=== PATIENT | male | born 1985 | race Two or more races ===

== ENCOUNTER 2016-12-25 16:51 | Emergency (ER) | payer BC ==
--- NOTE | 2016-12-25 16:59 | EDM.PDOC ---
ED HISTORY OF PRESENT ILLNESS - General Chief Complaint: Fever Stated Complaint: FEVER/COUGH/BODY ACHES Time Seen by Provider: 12/25/16 16:58 Source of Information: Reports: Patient History Limitations: Reports: No limitations - History of Present Illness INITIAL COMMENTS - FREE TEXT/NARRATIVE: 31-year-old male [place] descent presents to the ED with complaints of high fever and chills and bodyaches over the last 2-1/2 days. Associated very sore throat difficult to swallow. Some pain in his ears at times with swallowing. No cough or sputum production. Appetite has been decreased because of the sore throat. Denies any nausea vomiting or diarrhea. He reports she's been getting recurrent bouts of tonsillitis with 5 infections in the last 2 years. Dentures been as high as 102.6. Unable to work today due to current illness. Feels dizzy and weak. Symptom Onset Date: 12/23/16 Symptom Onset Time: 12:00 Timing/Duration: Reports: Hour(s):, Gradual onset Severity: moderate Location, General: Reports: other (Throat) Quality: Reports: Ache, Burning, Same as previous episode, Sharp, Stabbing Improves with: Reports: Medication Worsens with: Reports: Other (Trying to eat and swallow.) Context, General: Denies: Activity, Exercise, Lifting, Sick contact, Trauma, Other Associated Symptoms (General): Reports: fever/chills, headaches (202.6 with chills.), loss of appetite (Generalized myalgia.), malaise, weakness, other. 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: Reports: Acetaminophen, NSAIDS (Motrin) - Related Data Allergies/ADRs: Allergies Allergy/AdvReac Type Severity Reaction Status Date / Time No Known Allergies Allergy Verified 12/25/16 17:03 Home Meds: Home Meds Ciprofloxacin HCl [Cipro] 500 mg PO BID #28 tablet 12/25/16 [Rx] oxyCODONE HCl/Acetaminophen [Percocet 5-325 mg Tablet] 1 - 2 each PO Q4H PRN # 12 tablet 12/25/16 [Rx] Past Medical History - Past Health History Medical/Surgical History: Denies Medical/Surgical History Gastrointestinal History: Reports: GERD - Past Surgical History Other HEENT Surgeries/Procedures: HAS THIS SAME ISSUES FOR PAST 3 YEARS AND ALREADY THIS YEAR HAS HAD 5 EPISODES Social & Family History - Tobacco Use Smoking Status *Q: Current Every Day Smoker Years of Tobacco use: 14 Packs/Tins Daily: 0.5 - Recreational Drug Use Recreational Drug Use: No - Living Situation & Occupation Living situation: Reports: Occupation: employed ED ROS GENERAL - Review of Systems Review Of Systems: See Below Constitutional: Reports: fever, chills, malaise, weakness, fatigue, decreased appetite. Denies: weight loss HEENT: Reports: Ear pain (Occasionally with swallowing.), Throat pain (Severe feels like razor blades when he swallows.), Throat swelling. Denies: Glasses, Hearing loss, Nosebleed Respiratory: Reports: No Symptoms. Denies: Shortness of Breath, Wheezing, Pleuritic Chest Pain Cardiovascular: Reports: No symptoms Endocrine: Reports: no symptoms GI/Abdominal: Reports: No symptoms, Decreased appetite. Denies: Abdominal pain , Anorexia, Black stool, Bloody stool, Constipation, Diarrhea, Difficulty swallowing, Distension, Hematemesis : Reports: no symptoms Musculoskeletal: Reports: muscle pain Skin: Reports: no symptoms (Generalized myalgia particularly his lower back muscles and neck muscles) Neurological: Reports: No Symptoms Psychiatric: Reports: No symptoms Hematologic/Lymphatic: Reports: no symptoms Immunologic: Reports: no symptoms ED EXAM, GENERAL - Physical Exam Exam: See Below Exam Limited By: No limitations General Appearance: alert, moderate distress (He feels very warm to palpation. Temperature was almost 103 on examination) Eye Exam: bilateral eye: normal inspection Ears: other (He has a left serous otitis media. Right tympanic membrane normal) Nose: normal inspection Throat/Mouth: Normal lips, Other (Bilateral follicular tonsillitis worse on the left as compared to the right. Both tonsils are heart are hypertrophic and erythematous.). No: Normal inspection, Normal oropharynx Head: atraumatic, normocephalic Neck: normal inspection, supple, non-tender, full range of motion, lymphadenopathy (L) (Mild submandibularly), lymphadenopathy (R) (Mild submandibularly.) Respiratory/Chest: no respiratory distress, lungs clear, normal breath sounds, no accessory muscle use, chest non-tender Cardiovascular: normal peripheral pulses, regular rate, rhythm, no murmur, tachycardia (Resting heart rate of 1:15 to 120 per minute to 2 fever.) Peripheral Pulses: 2+: posterior tibial (L), posterior tibial (R), dorsalis pedis (L), dorsalis pedis (R) GI/Abdominal: normal bowel sounds, soft, non tender, no organomegaly, no distention Back Exam: normal inspection, full range of motion Extremities: normal inspection, normal range of motion, non-tender, no pedal edema, normal capillary refill Neurological: alert, oriented, CN II-XII intact, normal cognition, normal gait, normal reflexes, no motor/sensory deficits Psychiatric: normal affect, normal mood Skin Exam: Warm, Dry, Intact, Normal color, No rash Course - Vital Signs Last Recorded V/S: Last Vital Signs Temp 39.1 C H 12/25/16 16:57 Pulse 115 H 12/25/16 16:57 Resp 18 12/25/16 16:57 BP 145/87 H 12/25/16 16:57 Pulse Ox 98 12/25/16 16:57 - Orders/Labs/Meds Orders: Active Orders 24 hr Category Date Time Status CULTURE STREP A CONFIRMATION [] Stat Lab 12/25/16 17:20 Results STREP SCRN A RAPID W CULT CONF [] Stat Lab 12/25/16 17:20 Results Meds: Medications Discontinued Medications Generic Name Dose Route Start Last Admin Trade Name Jian PRN Reason Stop Dose Admin Ceftriaxone Sodium 1 gm 12/25/16 17:20 12/25/16 17:43 Rocephin IM 12/25/16 17:21 1 gm ONETIME ONE Administration Ibuprofen 600 mg 12/25/16 17:21 12/25/16 17:42 Motrin PO 12/25/16 17:22 600 mg ONETIME ONE Administration Lidocaine HCl 2 ml 12/25/16 17:21 12/25/16 17:44 Xylocaine-Mpf 1% INJECT 12/25/16 17:22 2 ml ONETIME ONE Administration Lidocaine HCl Confirm 12/25/16 17:26 12/25/16 17:46 Lidocaine 1% Administered 12/25/16 17:27 Not Given Dose 2 ml .ROUTE .STK-MED ONE Oxycodone/Acetaminophen 1 tab 12/25/16 17:22 12/25/16 17:42 Percocet 325-5 Mg PO 12/25/16 17:23 1 tab ONETIME ONE Administration - Radiology Interpretation Free Text/Narrative:: 31-year-old male [place] dissent presents to the ED with high fever generalized myalgia headache and very sore throat for the last 2-1/2 days. Patient did not go to work today due to current illness. He reports that he's been having recurrent bouts of tonsillitis over the last 2 years this would be his fifth infection. Examination indeed shows bilateral follicular tonsillitis left greater than right. Mild to moderate submandibular adenopathy as noted. He has toxic appearance with temperature almost 103. Triage nurse did a influenza screen and I ordered a rapid strep screen on his throat. He'll be given an intramuscular injection of Rocephin 1 g IV. Given Motrin 600 mg by mouth with one Percocet tablet 5 325 by mouth for pain and fever relief. - Re-Assessments/Exams Free Text/Narrative Re-Assessment/Exam: 12/25/16 18:28 influenza screen is negative. Rapid strep also returned as negative. Patient wishes to pursue tonsillectomy. He's asked me to make a referral to one of the ear nose and throat surgeons in [facility]. I spoke with Dr. Graves and did give the patient Dr. Graves's office number so that he can phone and make his own appointment. I will send patient's history and physical to Dr. Graves as a form of referral. Patient will be placed on Cipro 500 mg twice daily for the next 14 days to eradicate chronic tonsillitis. Motrin 600 mg every 6 hours necessary for pain and fever relief. Note given to excuse him from work place today and tomorrow. Tentatively he'll be able to return to work on December 27. 12/25/16 18:33 on review of the records he was seen today he was seen 05/29, he was seen 05/26/16, 03/02, and 01/25/16 through the ER and all times was diagnosed with tonsillitis. On 3 occasions he did grow out group A streptococcal infection. Therefore peers that he is suffering from recurrent chronic tonsillitis and I will make a referral to Dr. Graves for decision making to identify if he is a candidate for tonsillectomy. This is certainly what the patient would prefer. Departure - Departure Time of Disposition: 17:23 Disposition: Home, Self-Care 01 Condition: fair Clinical Impression: Tonsillitis with exudate Prescriptions: Ciprofloxacin HCl [Cipro] 500 mg PO BID #28 tablet oxyCODONE HCl/Acetaminophen [Percocet 5-325 mg Tablet] 1 - 2 each PO Q4H PRN # 12 tablet PRN Reason: pain relief. Instructions: Tonsillitis, [id number] Referrals: Karri Silverman PA-C [Primary Care Provider] - Forms: ED Department Discharge, Return to Work/School Form Additional Instructions: Evaluation in the emergency room today in regards to high fever and very sore throat. Examination reveals bilateral tonsillitis left worse than the right. By your history this is a recurrent problem for you and you wish to pursue getting her tonsils removed. Treatment today will be a initial injection of Rocephin 1 g intramuscularly. He'll need to start oral antibiotics tomorrow Cipro 500 mg twice daily for 14 days to clear up infection completely in the tonsills. May use Motrin 600 mg every 6 hours for fever and pain relief. Also Percocet tabs one tablet every 4 hours for pain relief as well. Expect marked improvement over the next 48 hours. I will have you call Dr. Graves`s office who is an ear, nose and throat surgeon in [facility] . His phone number is to arrange an appointment in the next couple of weeks to discuss having your tonsils removed. I will also send along your note from today to his office on a referral basis. - My Orders Last 24 Hours: My Active Orders 12/25/16 17:20 CULTURE STREP A CONFIRMATION [RM] Stat STREP SCRN A RAPID W CULT CONF [RM] Stat - Assessment/Plan Last 24 Hours: My Active Orders 12/25/16 17:20 CULTURE STREP A CONFIRMATION [RM] Stat STREP SCRN A RAPID W CULT CONF [RM] Stat
[2016-12-25 17:03] VITALS: BP 145/87
[2016-12-25] MEDS ORDERED: cefTRIAXone 1 GM Vial IM ONE (17:20)
[2016-12-25] MEDS ORDERED: Lidocaine 1% PF 2 ML SDV INJECT ONE (17:21)
[2016-12-25] MEDS ORDERED: Ibuprofen 600 MG Tab PO ONE (17:21)
[2016-12-25] MEDS ORDERED: Acetaminophen/oxyCODONE 325-5 MG Tab PO ONE (17:22)
[2016-12-25] MEDS ORDERED: Lidocaine 1% 2 ML SDV ONE (17:26)
== END 2016-12-25 18:20 | disposition home or self-care (01) ==
LOC: JD.ED 16:51
DX: J03.90 Acute tonsillitis, unspecified (principal); K21.9 Gastro-esophageal reflux disease without esophagitis; F17.210 Nicotine dependence, cigarettes, uncomplicated
CPT/HCPCS: 87081; 87430; 87804; 96372; 99283; A9270; J0696

== ENCOUNTER 2017-04-17 00:12 | Emergency (ER) | payer BC ==
[2017-04-17 00:23] VITALS: BP 132/75
--- NOTE | 2017-04-17 00:32 | EDM.PDOC ---
ED HPI GENERAL MEDICAL PROBLEM - General Chief Complaint: Fever Stated Complaint: HEADACHE FEVER Time Seen by Provider: 04/17/17 00:32 - History of Present Illness INITIAL COMMENTS - FREE TEXT/NARRATIVE: 31-year-old male presents to the emergency room with sore throat and fever. This has been getting worse over the last several days. The patient has had recurrent episodes of this in the past he was last treated with a shot of Rocephin and ciprofloxacin. The patient was going to schedule with ENT in [place] however canceled this appointment. The patient does not have any breathing difficulties shortness of breath or throat tightness with this current episode. Patient has a significant history of recurrent sore throats over the last several years. With reviewing his records he's had several strep positive screens. Throat Pain Score (Numeric/FACES): 8 - Related Data Allergies Allergy/AdvReac Type Severity Reaction Status Date / Time No Known Allergies Allergy Verified 04/17/17 00:19 Home Meds: Home Meds Clindamycin Hcl [IJD: Clindamycin HCl] 300 mg PO .EVERY 8 HOURS #30 cap [Rx] Ibuprofen [Advil] 200 mg PO Q8H 04/17/17 [History] Past Medical History - Past Health History Medical/Surgical History: Denies Medical/Surgical History Gastrointestinal History: Reports: GERD - Past Surgical History Other HEENT Surgeries/Procedures: HAS THIS SAME ISSUES FOR PAST 3 YEARS AND ALREADY THIS YEAR HAS HAD 5 EPISODES Social & Family History - Tobacco Use Smoking Status *Q: Current Every Day Smoker Years of Tobacco use: 14 Packs/Tins Daily: 0.5 - Recreational Drug Use Recreational Drug Use: No - Living Situation & Occupation Living situation: Reports: Occupation: Employed ED ROS GENERAL - Review of Systems Review Of Systems: See Below Constitutional: Reports: Fever. Denies: Chills HEENT: Reports: Throat Pain. Denies: Ear Pain, Rhinitis, Throat Swelling Respiratory: Reports: No Symptoms Cardiovascular: Reports: No Symptoms GI/Abdominal: Reports: No Symptoms ED EXAM, GENERAL - Physical Exam Exam: See Below Exam Limited By: No Limitations General Appearance: Alert, No Apparent Distress, Other (Vital signs stable pulses little quick he is afebrile) Eye Exam: Bilateral Eye: Normal Inspection Ears: Normal External Exam, Normal Canal, Hearing Grossly Normal, Normal TMs Nose: Normal Inspection, Normal Mucosa, No Blood Throat/Mouth: Normal Lips, Other (Posterior pharynx is erythematous tonsillar pillars have exudative patches on them mild to moderate erythema no significant swelling) Head: Atraumatic, Normocephalic Neck: Normal Inspection, Supple, Non-Tender, Full Range of Motion. No: Lymphadenopathy (L), Lymphadenopathy (R) Respiratory/Chest: No Respiratory Distress, Lungs Clear, Normal Breath Sounds Cardiovascular: Regular Rate, Rhythm, No Edema, No Murmur GI/Abdominal: Normal Bowel Sounds, Soft, Non-Tender Course - Vital Signs Last Recorded V/S: Last Vital Signs Temp 37.1 C 04/17/17 00:21 Pulse 105 H 04/17/17 00:21 Resp 18 04/17/17 00:21 BP 132/75 04/17/17 00:21 Pulse Ox 96 04/17/17 00:21 - Orders/Labs/Meds Orders: Active Orders 24 hr Category Date Time Status STREP SCRN A RAPID W CULT CONF [RM] Stat Lab 04/17/17 01:05 Results Meds: Medications Discontinued Medications Generic Name Dose Route Start Last Admin Trade Name Jian PRN Reason Stop Dose Admin Clindamycin HCl 300 mg 04/17/17 02:20 Cleocin PO 04/17/17 02:21 ONETIME ONE - Re-Assessments/Exams Free Text/Narrative Re-Assessment/Exam: 04/17/17 02:26 Rapid strep is positive he is having recurrent strep infections probably a carrier patient will be started on clindamycin 300 mg every 8 hours for 10 days it is essentially follow-up with his regular physician and be seen by ENT. Departure - Departure Time of Disposition: 02:27 Disposition: Home, Self-Care 01 Clinical Impression: History of streptococcal pharyngitis, Acute streptococcal pharyngitis - Discharge Information Prescriptions: Clindamycin Hcl [IJD: Clindamycin HCl] 300 mg PO .EVERY 8 HOURS #30 cap Forms: ED Department Discharge Additional Instructions: Return to the emergency room with any questions or problems or worsening symptoms. Follow-up in the Hospital clinic early this next week for recheck. [phone] Follow-up with the ear nose and throat doctor in [place]. You have been started on clindamycin, this is a very strong antibiotic take one every 8 hours until they're all gone. If you develop diarrhea while taking this follow-up in the clinic or return to the emergency room. - My Orders Last 24 Hours: My Active Orders 04/17/17 01:05 STREP SCRN A RAPID W CULT CONF [RM] Stat - Assessment/Plan Last 24 Hours: My Active Orders 04/17/17 01:05 STREP SCRN A RAPID W CULT CONF [RM] Stat
[2017-04-17] MEDS ORDERED: Clindamycin HCl 150 MG Cap PO ONE (02:20)
== END 2017-04-17 02:41 | disposition home or self-care (01) ==
LOC: JD.ED 00:12
DX: J02.0 Streptococcal pharyngitis (principal); F17.210 Nicotine dependence, cigarettes, uncomplicated; K21.9 Gastro-esophageal reflux disease without esophagitis; Z79.2 Long term (current) use of antibiotics
CPT/HCPCS: 87430; 99284; A9270; 99283

== ENCOUNTER 2017-05-11 08:03 | Emergency (ER) | payer BC ==
[2017-05-11 08:23] VITALS: BP 126/84
--- NOTE | 2017-05-11 08:31 | EDM.PDOC ---
ED HPI GENERAL MEDICAL PROBLEM - General Chief Complaint: Back Pain or Injury Stated Complaint: BACK PAIN Time Seen by Provider: 05/11/17 08:21 - History of Present Illness INITIAL COMMENTS - FREE TEXT/NARRATIVE: 31-year-old male presents emergency room with back pain. This pain has been on and off for really quite some time it sounds like however it kept him up most the night last night. He has pain only when he's lying down and there is some variability to this he does not have the pain when he is up and walking or sitting or working. Patient denies any loss of bowel or bladder control he has absolutely no leg pain and no other symptoms associated with this. Left Lower Back Pain Score (Numeric/FACES): 1 - Related Data Allergies Allergy/AdvReac Type Severity Reaction Status Date / Time No Known Allergies Allergy Verified 05/11/17 08:19 Home Meds: Home Meds Cyclobenzaprine [Flexeril] 10 mg PO DAILY #7 tablet 05/11/17 [Rx] Past Medical History - Past Health History Medical/Surgical History: Denies Medical/Surgical History Gastrointestinal History: Reports: GERD - Past Surgical History Other HEENT Surgeries/Procedures: HAS THIS SAME ISSUES FOR PAST 3 YEARS AND ALREADY THIS YEAR HAS HAD 5 EPISODES Social & Family History - Tobacco Use Smoking Status *Q: Current Every Day Smoker Years of Tobacco use: 14 Packs/Tins Daily: 0.5 - Recreational Drug Use Recreational Drug Use: No - Living Situation & Occupation Living situation: Reports: Occupation: Employed ED ROS GENERAL - Review of Systems Review Of Systems: See Below Constitutional: Reports: No Symptoms Respiratory: Reports: No Symptoms Cardiovascular: Reports: No Symptoms GI/Abdominal: Reports: No Symptoms Musculoskeletal: Reports: Back Pain Neurological: Reports: No Symptoms ED EXAM,LOWER BACK PAIN/INJURY - Physical Exam Exam: See Below Exam Limited By: No Limitations General Appearance: Alert, No Apparent Distress Head: Atraumatic, Normocephalic Respiratory/Chest: No Respiratory Distress, Lungs Clear, Normal Breath Sounds Cardiovascular: Regular Rate, Rhythm, No Edema, No Murmur Back Exam: Normal Inspection, Muscle Spasm (He has significant muscle tightness in the right lower lumbosacral area). No: CVA Tenderness (L), CVA Tenderness (R ), Vertebral Tenderness Extremities: Normal Inspection, No Pedal Edema Course - Vital Signs Last Recorded V/S: Last Vital Signs Temp 36.2 C 05/11/17 08:19 Pulse 60 05/11/17 08:19 Resp BP 126/84 05/11/17 08:19 Pulse Ox 99 05/11/17 08:19 - Orders/Labs/Meds Labs: Laboratory Tests 05/11/17 Range/Units 08:25 Urine Color Yellow (Yellow) Urine Appearance Clear (Clear) Urine pH 5.5 (5.0-8.0) Ur Specific [place] > or = 1.030 (1.005-1.030) Urine Protein Trace H (Negative) Urine Glucose (UA) Negative (Negative) Urine Ketones Negative (Negative) Urine Occult Blood Negative (Negative) Urine Nitrite Negative (Negative) Urine Bilirubin 1+ H (Negative) Urine Urobilinogen 0.2 (0.2-1.0) Ur Leukocyte Esterase Negative (Negative) Urine RBC 0-5 (0-5) /hpf Urine WBC 0-5 (0-5) /hpf Ur Epithelial Cells Not seen (0-5) /hpf Urine Bacteria Few (FEW) /hpf Urine Mucus Many H (FEW) /hpf Departure - Departure Time of Disposition: 09:02 Disposition: Home, Self-Care 01 Clinical Impression: Low back strain - Discharge Information Prescriptions: Cyclobenzaprine [Flexeril] 10 mg PO DAILY #7 tablet Referrals: Karri Silverman PA-C [Primary Care Provider] - Forms: ED Department Discharge Additional Instructions: Return to the emergency room with any questions problems or worsening symptoms. Follow up in the clinic on or Friday. Take ibuprofen, this is [id number], 200 mg tablets. Take 4, or 800 mg 3 times daily with meals as needed. You have been started on Flexeril, this is a muscle relaxant. Take it in the evenings to help you rest and to relax the muscles in your back
== END 2017-05-11 09:13 | disposition home or self-care (01) ==
LOC: JD.ED 08:03
DX: S39.012A Strain of muscle, fascia and tendon of lower back, initial encounter (principal); K21.9 Gastro-esophageal reflux disease without esophagitis; F17.210 Nicotine dependence, cigarettes, uncomplicated; X58.XXXA Exposure to other specified factors, initial encounter
CPT/HCPCS: 81001; 99283

== ENCOUNTER 2019-01-27 11:55 | Emergency (ER) | payer BC, OTHER ==
--- NOTE | 2019-01-27 12:36 | EDM.PDOC ---
ED HPI GENERAL MEDICAL PROBLEM - General Chief Complaint: Laceration Stated Complaint: NECK LAC Time Seen by Provider: 01/27/19 12:19 Source of Information: Reports: Patient History Limitations: Reports: No Limitations - History of Present Illness INITIAL COMMENTS - FREE TEXT/NARRATIVE: 33 yo M comes in today for laceration to his left anterior neck that happened while at work. 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 He is unsure if there is still a piece in his neck. He has a small laceration, about 0.1cm. He is breathing fine, is able to swallow, and states his pain is about a 3/10. No other complaints at this time. Tetanus is not UTD. He is primarily Bangladeshi speaking. - Related Data Allergies Allergy/AdvReac Type Severity Reaction Status Date / Time No Known Allergies Allergy Verified 01/27/19 12:05 Home Meds: Home Meds . [No Known Home Meds] 01/27/19 [History] Past Medical History - Past Health History Medical/Surgical History: Denies Medical/Surgical History Gastrointestinal History: Reports: GERD - Past Surgical History Other HEENT Surgeries/Procedures: HAS THIS SAME ISSUES FOR PAST 3 YEARS AND ALREADY THIS YEAR HAS HAD 5 EPISODES Social & Family History - Tobacco Use Smoking Status *Q: Current Every Day Smoker Years of Tobacco use: 10 Packs/Tins Daily: 0.5 - Caffeine Use Caffeine Use: Reports: Coffee - Recreational Drug Use Recreational Drug Use: No - Living Situation & Occupation Living situation: Reports: Occupation: Employed ED ROS GENERAL - Review of Systems Review Of Systems: ROS reveals no pertinent complaints other than HPI. ED EXAM, SKIN/RASH Exam: See Below Exam Limited By: No Limitations General Appearance: Alert, WD/WN, No Apparent Distress Eye Exam: Bilateral Eye: EOMI, Normal Inspection, PERRL Ears: Normal External Exam, Hearing Grossly Normal Nose: Normal Inspection, Normal Mucosa, No Blood Throat/Mouth: Normal Inspection, Normal Lips, Normal Teeth, Normal Gums, Normal Oropharynx, Normal Voice, No Airway Compromise Head: Atraumatic, Normocephalic Neck: Supple, Non-Tender, Full Range of Motion, Other (0.1cm laceration left anterior neck, actively bleeding) Respiratory/Chest: No Respiratory Distress, Lungs Clear, Normal Breath Sounds, No Accessory Muscle Use, Chest Non-Tender Cardiovascular: Normal Peripheral Pulses, Regular Rate, Rhythm, No Edema, No Gallop, No JVD, No Murmur, No Rub Neurological: Alert, Oriented, CN II-XII Intact, Normal Cognition, Normal Gait, Normal Reflexes, No Motor/Sensory Deficits Psychiatric: Normal Affect, Normal Mood Skin: Warm, Dry, Normal Color, Wound/Incision (0.1cm laceration to left anterior neck, actively bleeding) ED SKIN PROCEDURES - Laceration/Wound Repair Left Medial Neck Lac/Wound length In cm: 0.1 Appearance: Superficial Distal NVT: Neuro & Vascular Intact, No Tendon Injury Anesthetic Type: Local Local Anesthesia - Lidocaine (Xylocaine): 1% with EPI Skin Prep: Chlorhexidine (Hibiciens) Exploration/Debridement/Repair: Wound Explored, No Foreign Material Found Sterile Dressing Applied: Provider Tetanus Status Addressed: Yes Complications: No Progress/Comments: Unable to find metal via wound exploration or ultrasound. General Surgeon Dr. Victor came to examine, does not recommend surgery at this time. Course - Vital Signs Last Recorded V/S: Last Vital Signs Temp 97.7 F 01/27/19 12:02 Pulse 72 01/27/19 12:02 Resp 16 01/27/19 12:02 BP 122/79 01/27/19 12:02 Pulse Ox 94 L 01/27/19 12:02 - Orders/Labs/Meds Orders: Active Orders 24 hr Category Date Time Status Vaccines to be Administered [RC] PER UNIT ROUTINE Care 01/27/19 12:57 Active Meds: Medications Discontinued Medications Generic Name Dose Route Start Last Admin Trade Name Freq PRN Reason Stop Dose Admin Diphtheria/Tetanus/Acell Pertussis 0.5 ml 01/27/19 12:57 01/27/19 13:03 Adacel IM 01/27/19 12:58 0.5 ml .ONCE ONE Administration Lidocaine/Epinephrine 20 ml 01/27/19 12:57 01/27/19 13:05 Xylocaine 1% With Epinephrine 1:100,000 INJECT 01/27/19 12:58 20 ml ONETIME ONE Administration - Re-Assessments/Exams Free Text/Narrative Re-Assessment/Exam: 01/27/19 12:31 Ordered an Xray to r/o foreign body (metal) still in neck 01/27/19 12:47 Xray is back. There does appear to be metal in the neck. Will go ahead and do wound exploration to remove. 01/27/19 13:41 Wound was explored, unable to see or feel the foreign body on exam. Did try to use u/s guidance, but unable to use with sterile glove to maintain sterile field. Dr. Clayton came to inspect as well and agrees it is too difficult to find. Will likely need to send to the OR. Dr. Victor our general surgeon has been consulted. He will come see the patient. 01/27/19 15:04 Dr. Victor did come to assess the patient. U/S guidance was used to find the metal object, it is very small and superficial. Dr. Victor told the patient via overhead irrigator that surgery is not necessary at this time as the body will likely push the object out and it may not be worth the risk unless he is having active symptoms. Patient states he understands and is OK with going home at this time. Will send home with bandage and have advised to return to the ED if new or worsening symptoms that my warrant surgery at that time. Departure - Departure Time of Disposition: 15:08 Disposition: Home, Self-Care 01 Condition: Good Clinical Impression: Foreign body of neck, superficial Qualifiers: Encounter type: initial encounter Qualified Code(s): S10.95XA - Superficial foreign body of unspecified part of neck, initial encounter - Discharge Information *PRESCRIPTION DRUG MONITORING PROGRAM REVIEWED*: Not Applicable *COPY OF PRESCRIPTION DRUG MONITORING REPORT IN PATIENT ALECIA: Not Applicable Instructions: Puncture Wound, [id number] Referrals: PCP,None [Primary Care Provider] - Forms: ED Department Discharge Additional Instructions: You were seen in the ED today for metal in your neck. We explored the wound and were unable to find the object. Xray did show that there is metal in your neck. Our general surgeon also came to see you and did not recommend surgery at this time if you are not experiencing much pain or discomfort, as the object will likely come out on its own. The risks of surgery were explained to you- new cut , infection, not being able to find the metal- and you have decided to not have the surgery. Keep bandage on the wound and keep it clean for a few days until healed. Your tetanus shot was also updated today. Please update every 10 years. Please return to the ED if new or worsening symptoms. Hoy te vieron en el servicio de urgencias para el metal en tu tomy. Exploramos la herida y no pudimos encontrar el objeto. La radiografa mostr que hay metal en tu tomy. Nuestro cirujano general tambin vino a verlo y no recomend la ciruga en cale momento si no experimenta mucho dolor o molestia, ya que el objeto probablemente saldr por s solo. Se le explicaron los riesgos de la ciruga (nuevo charissa, infeccin, no poder encontrar el metal) y usted decidi no someterse a la ciruga. Mantenga la venda en la herida y mantngala limpia anselmo unos lopez hasta que sane. [place] vacuna contra el ttanos tambin se actualiz hoy. Por favor, actualice cada 10 aos. Por favor regrese al servicio de urgencias si los sntomas son nuevos o empeoran. - My Orders Last 24 Hours: My Active Orders 01/27/19 12:57 Vaccines to be Administered [RC] PER UNIT ROUTINE - Assessment/Plan Last 24 Hours: My Active Orders 01/27/19 12:57 Vaccines to be Administered [RC] PER UNIT ROUTINE
[2019-01-27] MEDS ORDERED: Diphtheria,Pertussis(Acell),Tetanus Vaccine 0.5 ML Syringe IM ONE (12:57)
[2019-01-27] MEDS ORDERED: Lidocaine 1% with EPINEPHrine 1:100,000 20 ML MDV INJECT ONE (12:57)
--- NOTE | 2019-01-27 12:58 | CR ---
Soft tissue neck: AP and lateral views of the neck were obtained. Linear opaque foreign body is seen within the superficial soft tissues of the anterior mid neck. This is located slightly to the left of midline. This abnormality measures approximately 1.1 x 0.13 x 0.40 cm. No additional foreign body is identified. Visualized osseous structures are within normal limits. Prevertebral soft tissues are normal. Impression: 1. Opaque foreign body as described above. Diagnostic code #3
[2019-01-27 16:05] VITALS: BP 126/83
--- NOTE | 2019-01-27 16:10 | PCM.CONS ---
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 ER staff attempted to identify the foreign body, but was unable to remove through local wound exploration. I was consulted to assist. The patient denies any pain at the site. There was bleeding at the site, per ER staff, but has since resolved. - Related Data Allergies/Adverse Reactions: Allergies Allergy/AdvReac Type Severity Reaction Status Date / Time No Known Allergies Allergy Verified 01/27/19 12:05 Home Medications: Home Meds . [No Known Home Meds] 01/27/19 [History] Past Medical History - Past Health History Medical/Surgical History: Denies Medical/Surgical History Gastrointestinal History: Reports: GERD - Past Surgical History Head Surgeries/Procedures: Reports: None Other HEENT Surgeries/Procedures: HAS THIS SAME ISSUES FOR PAST 3 YEARS AND ALREADY THIS YEAR HAS HAD 5 EPISODES Social & Family History - Tobacco Use Smoking Status *Q: Current Every Day Smoker Years of Tobacco use: 10 Packs/Tins Daily: 0.5 - Caffeine Use Caffeine Use: Reports: Coffee - Recreational Drug Use Recreational Drug Use: No - Living Situation & Occupation Living situation: Reports: Occupation: Employed H&P Review of Systems - Review of Systems: Review Of Systems: ROS reveals no pertinent complaints other than HPI. Exam - Exam Exam: See Below - Vital Signs Vital Signs: Last Vital Signs Temp 36.5 C 01/27/19 12:02 Pulse 72 01/27/19 12:02 Resp 16 01/27/19 12:02 BP 122/79 01/27/19 12:02 Pulse Ox 94 L 01/27/19 12:02 Weight: 81.647 kg - Exam General: Alert, Oriented, Cooperative, Other (no hoarse voice) Neck: Supple, Trachea Midline, Other (Just to the LEFT of midline at the mid- neck (zone 2), there is a small skin wound measuring <1 cm, without active bleeding. Nontender. No palpable foreign bodies.) - Patient Data Imaging Impressions Last 24 hrs: Soft tissue neck: AP and lateral views of the neck were obtained. Linear opaque foreign body is seen within the superficial soft tissues of the anterior mid neck. This is located slightly to the left of midline. This abnormality measures approximately 1.1 x 0.13 x 0.40 cm. No additional foreign body is identified. Visualized osseous structures are within normal limits. Prevertebral soft tissues are normal. Impression: 1. Opaque foreign body as described above. Diagnostic code #3 Consult PN Assessment/Plan Procedures: Procedures AG DETECT NOS IA MULT (05/29/16) ASSAY OF LIPASE (01/23/16) BLOOD CULTURE FOR BACTERIA (03/02/16) C-REACTIVE PROTEIN (02/14/16) CHEST X-RAY 2VW FRONTAL&LATL (03/02/16) CHYLMD TRACH DNA AMP PROBE (05/29/16) COMPLETE CBC W/AUTO DIFF WBC (05/29/16) COMPREHEN METABOLIC PANEL (03/02/16) CT ABD & PELVIS W/O CONTRAST (01/23/16) CULTURE SCREEN ONLY (12/25/16) EMERGENCY DEPT VISIT (05/11/17) EMERGENCY DEPT VISIT (04/17/17) EMERGENCY DEPT VISIT (12/25/16) HELICOBACTER PYLORI ANTIBODY (02/14/16) HEP B CORE ANTIBODY IGM (05/29/16) HEPATITIS A IGM ANTIBODY (05/29/16) HEPATITIS B SURFACE AG IA (05/29/16) HEPATITIS C AB TEST (05/29/16) HERPES SIMPLEX JOSIE ANTBDY (05/29/16) HERPES SIMPLEX TYPE 1 TEST (05/29/16) HERPES SIMPLEX TYPE 2 TEST (05/29/16) HETEROPHILE ANTIBODY SCREEN (03/02/16) HYDRATE IV INFUSION ADD-ON (03/02/16) INFLUENZA ASSAY W/OPTIC (12/25/16) N.GONORRHOEAE DNA AMP PROB (05/29/16) ROUTINE VENIPUNCTURE (03/02/16) STREP A AG IA (04/17/17) SYPHILIS TEST NON-TREP QUAL (05/29/16) THER/PROPH/DIAG INJ IV PUSH (03/02/16) THER/PROPH/DIAG INJ SC/IM (12/25/16) THER/PROPH/DIAG IV INF INIT (01/23/16) TX/PRO/DX INJ NEW DRUG ADDON (01/23/16) URINALYSIS AUTO W/O SCOPE (02/14/16) URINALYSIS AUTO W/SCOPE (05/11/17) (1) Foreign body of neck, superficial SNOMED Code(s): 907398899, [id number] Code(s): S10.95XA - SUPERFICIAL FOREIGN BODY OF UNSP PART OF NECK, INIT ENCNTR Current Visit: Yes Qualifiers: Encounter type: initial encounter Qualified Code(s): S10.95XA - Superficial foreign body of unspecified part of neck, initial encounter Problem List Initiated/Reviewed/Updated: Yes Plan: 33 male, [place]an-speaking, otherwise healthy, presents with a metallic foreign body in the subcutaneous tissue of the anterior neck. Foreign body is not palpable on clinical exam. X-ray images and radiology report reviewed. - Bedside U/S performed, which showed a hyperechoic object measuring about 1 cm in the subcutaneous tissue of the anterior neck, superficial to the fascia/ platysma. It appears to be located just inferior to the small wound (which would require a separate incision if operative exploration were to be pursued). - Extension discussion with patient (with assistance of tele-interpretation) regarding the indications, risks, and benefits of operative exploration to remove the foreign body. Since the object is metallic, and as long as there are no associated pain/symptoms, no further exploration is needed. Operative exploration has risks of bleeding, infection, scar, inability to identify and remove the foreign body (especially given its small size), and need for additional procedures. - Patient may return if he has any changes in symptoms. - Tetanus shot given in ED. Filiberto Pierre M.D. ([facility]), F.A.C.S. General Surgery
== END 2019-01-27 15:30 | disposition home or self-care (01) ==
LOC: JD.ED 11:55
DX: S10.95XA Superficial foreign body of unspecified part of neck, initial encounter (principal); F17.210 Nicotine dependence, cigarettes, uncomplicated; Y99.0 Civilian activity done for income or pay; W45.8XXA Other foreign body or object entering through skin, initial encounter; Z23 Encounter for immunization
CPT/HCPCS: 70360; 70360-26; 90471; 90700; 99283; 99283-25

== ENCOUNTER 2019-01-29 10:03 | Emergency (ER) | payer OTHER ==
[2019-01-29 10:35] VITALS: BP 135/83
[2019-01-29] MEDS ORDERED: Lidocaine 1% with EPINEPHrine 1:100,000 20 ML MDV INJECT ONE (10:53)
--- NOTE | 2019-01-29 12:21 | EDM.PDOC ---
ED HPI GENERAL MEDICAL PROBLEM - General Chief Complaint: Neck Problem Stated Complaint: METAL IN NECK Time Seen by Provider: 01/29/19 10:47 Source of Information: Reports: Patient History Limitations: Reports: No Limitations - History of Present Illness INITIAL COMMENTS - FREE TEXT/NARRATIVE: The patient presents with a foreign body in his anterior neck. He was helping a coworker remove some metal and he was holding a piece of metal and his coworker was hammering and a piece shot up into his anterior neck. He was seen here and x-rays revealed a metal FB. Jeanette one of our PAs could not find it. She consulted Dr Victor and he could not see it and advised the patient that this will work it self out. The patient thought he felt it more superficially now. Onset: Sudden Duration: Day(s): Location: Reports: Neck Improves with: Reports: None Worsens with: Reports: None Associated Symptoms: Reports: No Other Symptoms Middle Neck Pain Score (Numeric/FACES): 8 - Related Data Allergies Allergy/AdvReac Type Severity Reaction Status Date / Time No Known Allergies Allergy Verified 01/29/19 10:35 Home Meds: Home Meds . [No Known Home Meds] 01/27/19 [History] Past Medical History - Past Health History Medical/Surgical History: Denies Medical/Surgical History Cardiovascular History: Reports: None Respiratory History: Reports: None Gastrointestinal History: Reports: GERD Genitourinary History: Reports: None Musculoskeletal History: Reports: None Neurological History: Reports: None Psychiatric History: Reports: None Endocrine/Metabolic History: Reports: None Immunologic History: Reports: None Oncologic (Cancer) History: Reports: None Dermatologic History: Reports: None - Infectious Disease History Infectious Disease History: Reports: None - Past Surgical History Head Surgeries/Procedures: Reports: None Other HEENT Surgeries/Procedures: HAS THIS SAME ISSUES FOR PAST 3 YEARS AND ALREADY THIS YEAR HAS HAD 5 EPISODES Social & Family History - Family History Family Medical History: Noncontributory - Tobacco Use Smoking Status *Q: Current Every Day Smoker Years of Tobacco use: 10 Packs/Tins Daily: 1 - Caffeine Use Caffeine Use: Reports: Coffee, Energy Drinks, Soda - Recreational Drug Use Recreational Drug Use: Yes Recreational Drug Type: Reports: Cocaine Recreational Drug Use Frequency: Not Used In Over 1 Year - Living Situation & Occupation Living situation: Reports: Occupation: Employed ED ROS GENERAL - Review of Systems Review Of Systems: See Below Constitutional: Reports: No Symptoms HEENT: Reports: Other (Neck FB) Respiratory: Reports: No Symptoms Cardiovascular: Reports: No Symptoms Endocrine: Reports: No Symptoms GI/Abdominal: Reports: No Symptoms : Reports: No Symptoms Musculoskeletal: Reports: Other (Neck FB). Denies: Neck Pain ED EXAM, UPPER BACK/NECK PAIN - Physical Exam Exam: See Below Exam Limited By: No Limitations General Appearance: Alert, No Apparent Distress Ears Exam: Normal External Exam Nose Exam: Normal Inspection Head Exam: Atraumatic, Normocephalic Neck Exam: Other (Superficial laceration to the anterior left medial neck. No pain upon palpation) Cardiovascular/Respiratory: Regular Rate, Rhythm GI/Abdominal: Normal Bowel Sounds ED LACERATION/WOUND PROCEDURES - Laceration/Wound Repair Neck Laceration/Wound Length In cm: 1.5 Appearance: Subcutaneous, Linear Anesthetic Type: Local Local Anesthesia - Lidocaine (Xylocaine): 1% with EPI Skin Prep: Saline Wound Exploration, Debridement, Revision: Wound Explored, In a Bloodless Field, Explored to Base, Minimally Undermined, Foreign Material Removed Suture Size: 4-0 # of Sutures: 3 Suture Type: Nylon, Interrupted, Simple Tetanus Status Addressed: Yes Complications: None Course - Vital Signs Last Recorded V/S: Last Vital Signs Temp 98.1 F 01/29/19 10:32 Pulse 77 01/29/19 10:32 Resp 18 01/29/19 10:32 BP 135/83 01/29/19 10:32 Pulse Ox 98 01/29/19 10:32 - Orders/Labs/Meds Orders: Active Orders 24 hr Category Date Time Status Neck Soft Tissue [CR] Stat Exams 01/29/19 11:44 Taken Meds: Medications Discontinued Medications Generic Name Dose Route Start Last Admin Trade Name Hemaq PRN Reason Stop Dose Admin Lidocaine/Epinephrine 20 ml 01/29/19 10:53 01/29/19 11:15 Xylocaine 1% With Epinephrine 1:100,000 INJECT 01/29/19 10:54 20 ml ONETIME ONE Administration - Re-Assessments/Exams Free Text/Narrative Re-Assessment/Exam: 01/29/19 12:22 I did an US and I localized the FB. I then opened up the laceration to about 1.5cm and I was able to find the metal FB and remove it. I irrigated the wound with saline and I sutured the laceration closed. Departure - Departure Time of Disposition: 12:30 Disposition: Home, Self-Care 01 Condition: Good Clinical Impression: Foreign body of neck, superficial Qualifiers: Encounter type: initial encounter Qualified Code(s): S10.95XA - Superficial foreign body of unspecified part of neck, initial encounter Laceration of neck Qualifiers: Encounter type: subsequent encounter Qualified Code(s): S11.91XD - Laceration without foreign body of unspecified part of neck, subsequent encounter - Discharge Information *PRESCRIPTION DRUG MONITORING PROGRAM REVIEWED*: Not Applicable *COPY OF PRESCRIPTION DRUG MONITORING REPORT IN PATIENT ALECIA: Not Applicable Referrals: PCP,None [Primary Care Provider] - Additional Instructions: Clean the wound with warm soapy water and apply antibiotic ointment after. Have the sutures removed in 1 week. Please return if you see any signs of infection such as redness, swelling, pain, or drainage. You may need antibiotics then. - My Orders Last 24 Hours: My Active Orders 01/29/19 11:44 Neck Soft Tissue [CR] Stat - Assessment/Plan Last 24 Hours: My Active Orders 01/29/19 11:44 Neck Soft Tissue [CR] Stat
--- NOTE | 2019-01-29 12:44 | CR ---
Soft tissue neck: Two views of the neck were obtained. Comparison: Previous soft tissue neck study of 01/27/19. Previous metallic foreign body is not seen on current exam as noted previously. Impression: 1. Findings compatible with removal of previous foreign body. Diagnostic code #1
== END 2019-01-29 12:51 | disposition home or self-care (01) ==
LOC: JD.ED 10:03
DX: S11.92XA Laceration with foreign body of unspecified part of neck, initial encounter (principal); F17.210 Nicotine dependence, cigarettes, uncomplicated; W45.8XXA Other foreign body or object entering through skin, initial encounter
CPT/HCPCS: 10060; 10120; 12001; 12002; 70360; 70360-26; 99282; 99283-25

== ENCOUNTER 2022-11-06 02:46 | Emergency (ER) | payer BC, OTHER ==
[2022-11-06 02:56] VITALS: BP 120/87; PULSE 69
== END 2022-11-06 04:03 | disposition home or self-care (01) ==
LOC: JD.ED 02:46
DX: S93.501A Unspecified sprain of right great toe, initial encounter (principal); Z72.0 Tobacco use; W10.9XXA Fall (on) (from) unspecified stairs and steps, initial encounter; Y93.01 Activity, walking, marching and hiking
CPT/HCPCS: 73630-26-RT; 73630-RT; 99283; 99284